=== PATIENT | male | born 1950 | race African-American/Black ===

== ENCOUNTER 2019-11-10 11:09 | Emergency (ER) | payer OTHER ==
[~2019-11-10] VITALS: Ht 185.4 cm; Wt 109.8 kg
[2019-11-10 12:29] VITALS: BP 132/92
[2019-11-10] MEDS ORDERED: IBUPROFEN 600 MG TAB PO ONE (13:00)
[2019-11-10] MEDS ORDERED: METHOCARBAMOL 500 MG TAB PO ONE (13:00)
== END 2019-11-10 14:11 | disposition home or self-care (01) ==
LOC: ER 11:09
DX: S16.1XXA Strain of muscle, fascia and tendon at neck level, initial encounter (principal); M54.5 Low back pain; E78.5 Hyperlipidemia, unspecified; I10 Essential (primary) hypertension; F17.210 Nicotine dependence, cigarettes, uncomplicated; V49.9XXA Car occupant (driver) (passenger) injured in unspecified traffic accident, initial encounter; Y93.89 Activity, other specified; Y92.89 Other specified places as the place of occurrence of the external cause; Y99.8 Other external cause status
CPT/HCPCS: 70450; 72100; 72125